=== PATIENT | female | born 1980 | race African-American/Black ===

== ENCOUNTER 2021-12-30 08:50 | Emergency (ER) | payer MEDICAID ==
[~2021-12-30] VITALS: Ht 165.1 cm; Wt 68.0 kg
[2021-12-30] MEDS ORDERED: LIDOCAINE HCL/EPINEPHRINE 1%-EPI 1:100,000 50 ML VIAL INFIL ONE (09:30)
[2021-12-30] MEDS ORDERED: SULF1TAB48 MT (10:05)
[2021-12-30 11:20] VITALS: BP 154/87
== END 2021-12-30 11:22 | disposition home or self-care (01) ==
LOC: ER 08:50
DX: L02.611 Cutaneous abscess of right foot (principal); I10 Essential (primary) hypertension; Z91.018 Allergy to other foods
CPT/HCPCS: 10060; 99283; Z7610